=== PATIENT | male | born 1995 | race African-American/Black ===

== ENCOUNTER 2017-01-19 17:18 | Emergency (ER) | payer BC ==
[~2017-01-19] VITALS: Ht 182.9 cm; Wt 113.4 kg
[2017-01-19 17:32] VITALS: BP 157/94
--- NOTE | 2017-01-19 17:42 | NUR ---
DR NELSON AT BEDSIDE FOR EVAL.
--- NOTE | 2017-01-19 18:02 | NUR ---
RADIOLOGY AT BEDSIDE FOR CHEST XRAY.
== END 2017-01-19 19:13 | disposition home or self-care (01) ==
LOC: ER 17:20
DX: R05 Cough (principal); Z88.0 Allergy status to penicillin; Z88.1 Allergy status to other antibiotic agents
CPT/HCPCS: 71010-TC; A4606; Z7610

== ENCOUNTER 2017-09-17 21:21 | Emergency (ER) | payer SELFPAY | END 2017-09-18 00:24 | disposition left against medical advice (07) | LOC: ER 21:25 | DX: Z53.21 Procedure and treatment not carried out due to patient leaving prior to being seen by health care provider (principal) ==

== ENCOUNTER 2017-10-14 20:44 | Emergency (ER) | payer SELFPAY ==
[~2017-10-14] VITALS: Ht 182.9 cm; Wt 104.3 kg
[2017-10-14 20:55] VITALS: BP 139/73
== END 2017-10-14 21:28 | disposition home or self-care (01) ==
LOC: ER 20:50
DX: S46.812A Strain of other muscles, fascia and tendons at shoulder and upper arm level, left arm, initial encounter (principal); Z88.0 Allergy status to penicillin; Z88.8 Allergy status to other drugs, medicaments and biological substances; X50.9XXA Other and unspecified overexertion or strenuous movements or postures, initial encounter; Y93.41 Activity, dancing; Y92.89 Other specified places as the place of occurrence of the external cause; Y99.8 Other external cause status
CPT/HCPCS: 99282; A4606; Z7610